=== PATIENT | female | born 1980 | race Caucasian/White ===

== ENCOUNTER 2023-07-09 15:03 | Emergency (ER) | payer OTHER, SELFPAY ==
[2023-07-09 15:05] VITALS: BP 155/96
--- NOTE | 2023-07-09 15:25 | ED.GENMED ---
History of Present Illness
General
Chief Complaint: Ear Problem
Source: patient
Exam Limitations: none
Time Seen by Provider: 07/09/23 15:08
Nursing documentation reviewed up to this point in time: agreed with
Travel History
Have you had any contact with someone who has COVID-19?: No
Do you have any symptoms of coronavirus? Fever > 100 degrees, chills, cough, shortness of breath, sore throat, loss of taste or smell, muscle aches, or headache?: No
History of Present Illness
History of Present Illness:
Patient to ED wt complaint of left ear and left lower jaw pain. Symptoms started 'weeks ago'. She was seen at urgent care and placed on prednisone x 3 days without improvement. Denies fever/chills. No facial swelling. Reports ear feels full.
Brought self to ED for alberto.
Past History
Past History
ED Past Medical History: Psychiatric (Generalized anxiety, alcohol abuse)
ED Past Surgical History: Cholecystectomy
Social History
Tobacco: Smoker
Alcohol: Chronic alcoholic
Drug: Cocaine
Personal:
Living: alone
Employment: Employed (Works for a local contract specialist)
Family History
Family History: Other (Noncontributory)
Review of Systems
Review of Systems
Allergies reviewed?: Yes
All Other Systems: ROS reviewed and negative except as documented in HPI and ROS
Constitutional: Reports no symptoms
EENT: Reports other (left ear and jaw pain)
Respiratory: Reports no symptoms
Cardiac: Reports no symptoms
ABD/GI: Reports no symptoms
Musculoskeletal: Reports no symptoms
Skin: Reports no symptoms
Neurological: Reports no symptoms
Psychiatric: Reports no symptoms
Phy Exam
General Physical Exam
General Presentation: well appearing and no apparent distress
General age: appears stated age
General Skin: warm and dry
General Habitus: normal
General Mental: alert
General Hydration: appears well hydrated
ENT Exam
ENT Exam: EOMI, TM's normal, pharynx normal, neck supple, normocephalic, swallowing well and other (Broken left lower molar. Painful tooth. No evidence of dental abscess)
Musculoskeletal Exam
Musculoskeletal Exam: full ROM and neuro vasc intact
Skin Exam
Skin Exam: normal color, warm/dry and no rash
Psychiatric Exam
Psychiatric Exam: normal mood/affect
Course
Orders/Labs/Results
Orders:
Orders
07/09/23 15:20
Penicillin V Potassium [Pen Vk] 500 mg PO NOW STA
Prednisone [Deltasone] 40 mg PO NOW STA
Vital Signs
Initial and Last Documented VS:
Initial Vital Signs
Temp Pulse Resp BP Pulse Ox
97.6 F 110 16 155/96 99
07/09/23 15:05 07/09/23 15:05 07/09/23 15:05 07/09/23 15:05 07/09/23 15:05
Last Documented Vital Signs
Temp Pulse Resp BP Pulse Ox
97.6 F 110 16 155/96 99
07/09/23 15:05 07/09/23 15:05 07/09/23 15:05 07/09/23 15:05 07/09/23 15:05
*Critical Care Note
Total Time (30-74mins, 75-104mins- exclusive of procedures): Not Applicable
ED Attending Note
-
Portions of this chart may have been created with voice recognition software.� Occasional wrong word or��sound alike� substitutions may have occurred due to the inherent limitations of voice recognition software.
Discharge Plan
Departure
Patient Disposition: Home (Routine Discharge)
Date of Disposition: 07/09/23
Time of Disposition: 15:21
Patient with high blood pressure during this ER visit?: No
Condition: Good
Covid-19: Not Applicable
Discharge Problem:
Facial pain, Broken tooth
Instructions: Fractured Tooth (DC), Dental Pain (DC)
Prescriptions:
New
penicillin V potassium 500 mg tablet
500 mg PO Q6H Qty: 28 0RF
prednisone 20 mg tablet
40 mg PO DAILY Qty: 6 0RF
No Action
[id number]-lnor-minerals [Multiple Vitamin, Womens] 1 EACH tablet
1 ea PO HS
oxycodone-acetaminophen 5 MG/325 MG tablet
1 tab PO Q4HPRN PRN (Reason: moderate pain) 0RF
ibuprofen 600 MG tablet
600 mg PO Q4HPRN PRN (Reason: cramps) 0RF
Referrals:
Russell Burris DO [Family Provider] -
Activity Restrictions/Additional Instructions:
Follow up with your dentist this week.
Interventions
Interventions:
*Risk Screen - Suicide Last Done: 07/09/23 15:05
*General Assessment Last Done: 07/09/23 15:05
*Neglect/Abuse Screening Last Done: 07/09/23 15:05
[2023-07-09] MEDS: DELTASONE 40 MG PO (15:40)
[2023-07-09] MEDS: PEN VK 500 MG PO (15:40)
== END 2023-07-09 15:45 | disposition home or self-care (01) ==
LOC: EMR 15:03
PROVIDERS: EMERGENCY PHYSICIAN Emergency Medicine; FAMILY PHYSICIAN Family Medicine
DX: R51.9 Headache, unspecified (principal); S02.5XXA Fracture of tooth (traumatic), initial encounter for closed fracture; X58.XXXA Exposure to other specified factors, initial encounter; F10.10 Alcohol abuse, uncomplicated; F41.1 Generalized anxiety disorder; F17.200 Nicotine dependence, unspecified, uncomplicated
CPT/HCPCS: 99282